=== PATIENT | male | born 1975 | race Caucasian/White ===

== ENCOUNTER 2018-05-17 13:41 | Emergency (ER) | payer MEDICAID ==
[2018-05-17] MEDS ORDERED: ALBUTEROL NEB 2.5 MG/3 ML INH STA (14:08)
--- NOTE | 2018-05-17 14:11 | ED Physician Documentation ---
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 He is not currently on antifungal treatment. For the last 3-4 days he has had a cough productive of pinkish sputum with mild shortness of breath and also runny nose and sore throat. His significant other had a similar illness. No recent travel.) Review of Systems Constitutional: reports: Fever (subjective) Nose: reports: Rhinorrhea / runny nose, Congestion Throat: reports: Sore throat Respiratory: reports: Dyspnea, Cough GI: denies: Abdominal Pain PD PAST MEDICAL HISTORY - Present Medications Home Medications: Ambulatory Orders Medication Instructions Recorded Confirmed Hydrocodone/Chlorphen P-Stirex 5 ml PO BID PRN #90 ml 05/17/18 [Hydrocodone-Chlorphen ER Susp] Levofloxacin [Levaquin] 750 mg PO DAILY #7 tablet 05/17/18 RX: Albuterol Sulf [Ventolin Hfa 1 - 2 puffs INH Q4HR PRN #1 inhaler 05/17/18 Inhaler] - Allergies Allergies/Adverse Reactions: Allergies Allergy/AdvReac Type Severity Reaction Status Date / Time No Known Drug Allergies Allergy Verified 05/17/18 13:47 PD ED PE NORMAL - Vitals Vital signs reviewed: Yes - General General: Alert and oriented X 3, No acute distress, Other (frequent cough) - HEENT HEENT: PERRL, EOMI, Pharynx benign - Neck Neck: Supple, no meningeal sign, No bony TTP - Cardiac Cardiac: RRR, No murmur - Respiratory Respiratory: No respiratory distress, Other (Diminished throughout, no focal findings) - Abdomen Abdomen: Non tender - Extremities Extremities: No edema, No calf tenderness / cord - Neuro Neuro: Alert and oriented X 3, Normal speech Results - Vitals Vitals: Vital Signs - 24 hr 05/17/18 05/17/18 05/17/18 13:45 13:47 14:23 Temperature 37.3 C Heart Rate 110 H 107 H Respiratory 15 16 Rate Blood Pressure 116/75 O2 Saturation 96 05/17/18 05/17/18 05/17/18 15:36 15:47 16:24 Temperature Heart Rate 100 106 H 100 Respiratory 16 16 Rate Blood Pressure 116/68 116/68 105/68 O2 Saturation 99 100 99 Oxygen O2 Source Room air - Labs Labs: Laboratory Tests 05/17/18 05/17/18 05/17/18 14:30 14:30 14:30 WBC 13.8 H RBC 4.56 L Hgb 14.4 Hct 40.8 L MCV 89.6 MCH 31.5 H MCHC 35.2 RDW 12.2 Plt Count 289 MPV 7.6 Neut # (Auto) 11.3 H Lymph # (Auto) 1.1 L [place] # (Auto) 1.3 H Eos # (Auto) 0.1 Baso # (Auto) 0.1 Absolute Nucleated RBC 0.01 Nucleated RBC % 0.0 Sodium 131 L Potassium 3.6 Chloride 94 L Carbon Dioxide 27 Anion Gap 10.0 BUN 14 Creatinine 1.0 Estimated GFR (MDRD) 82 L Glucose 102 H Lactic Acid 1.6 Calcium 8.8 - Rads (name of study) 2v chest Radiology: EMP read contemporaneously (RLL PNA) PD MEDICAL DECISION MAKING - ED course ED course: 42-year-old gentleman with history of lobectomy due to coccidiomycosis presents with productive cough and mild tachycardia. Found to have lobar pneumonia on x- ray. Labs are reassuring from a septic standpoint and he was feeling better after IV fluids here. He also received a dose of IV levofloxacin. Departure - Departure Disposition: 01 Home, Self Care Clinical Impression: Pneumonia Condition: Good Record reviewed to determine appropriate education?: Yes Instructions: Pneumonia Dc Prescriptions: RX: Albuterol Sulf [Ventolin Hfa Inhaler] 1 - 2 puffs INH Q4HR PRN #1 inhaler PRN Reason: Shortness Of Air/Wheezing Hydrocodone/Chlorphen P-Stirex [Hydrocodone-Chlorphen ER Susp] 5 ml PO BID PRN #90 ml PRN Reason: Cough Levofloxacin [Levaquin] 750 mg PO DAILY #7 tablet Comments: Call your doctor to arrange a follow-up appointment, make the next available appointment. In the interim, return anytime if worse or if new symptoms develop. Discharge Date/Time: 05/17/18 16:32
[2018-05-17] MEDS ORDERED: SODIUM CHLORIDE 0.9% 1,000 ML IV ONE (14:17)
[2018-05-17] MEDS ORDERED: levoFLOXacin 750 MG/150 ML 750 MG/150 ML BAG IV ONE (14:17)
[2018-05-17] MEDS ORDERED: ACETAMINOPHEN 325 MG TABLET PO STA (14:35)
[2018-05-17] MEDS ORDERED: IBUPROFEN 800 MG TABLET PO STA (14:35)
[2018-05-17 14:45] LABS: BASOPHILS # (AUTO) 0.1 10^3/uL (0.0-0.1); BASOPHILS % (AUTO) 0.5 %; EOSINOPHILS # (AUTO) 0.1 10^3/uL (0.0-0.7); EOSINOPHILS % (AUTO) 0.7 %; HGB - HEMOGLOBIN 14.4 g/dL (14.0-18.0); LYMPHOCYTES # (AUTO) 1.1 10^3/uL (1.5-3.5); LYMPHOCYTES % (AUTO) 7.7 %; MEAN CORPUSCULAR HEMOGLOBIN 31.5 pg (27.0-31.0); MEAN CORPUSCULAR HGB CONC 35.2 g/dL (32.0-36.0); MEAN CORPUSCULAR VOLUME 89.6 fL (80.0-94.0); MEAN PLATELET VOLUME 7.6 fL (7.4-11.4); MONOCYTES # (AUTO) 1.3 10^3/uL (0.0-1.0); MONOCYTES % (AUTO) 9.2 %; NEUTROPHILS # (AUTO) 11.3 10^3/uL (1.5-6.6); NEUTROPHILS % (AUTO) 81.9 %; PLT - PLATELET COUNT 289 10^3/uL (130-450); RED BLOOD COUNT 4.56 10^6/uL (4.70-6.10); RED CELL DISTRIBUTION WIDTH 12.2 % (12.0-15.0); WHITE BLOOD COUNT 13.8 x10^3/uL (4.8-10.8)
[2018-05-17 14:49] LABS: CALCIUM 8.8 mg/dL (8.5-10.3)
--- NOTE | 2018-05-17 14:59 | XRAY Report ---
Reason: cough Procedure Date: 05/17/2018 Accession Number: [id number] / [id number] Procedure: XR - Chest 2 View X-Ray CPT Code: 68025 FULL RESULT: EXAM: CHEST RADIOGRAPHY EXAM DATE: 05/17/2018 02:16 PM. CLINICAL HISTORY: Cough. COMPARISON: None. TECHNIQUE: 2 views. FINDINGS: Lungs/Pleura: Patchy right lower lobe consolidation. Lungs are otherwise clear. Surgical changes in the left mid and upper lung. No pleural effusion. No pneumothorax. Mild hyperinflation. Mediastinum: Heart and mediastinal contours are normal. Other: None. IMPRESSION: Right lower lobe pneumonia. Mild hyperinflation. Consider radiographic follow-up after appropriate treatment. RADIA
[2018-05-17 16:24] VITALS: BP 105/68
--- NOTE | 2018-05-17 17:39 | ED Physician Documentation ---
ED Addendum - Addendum Addendum: 05/17/18 17:39 The cough syrup prescribed was not covered by his insurance. Authorized to change to Cheratussin with the same directions and amount.
== END 2018-05-17 16:32 | disposition home or self-care (01) ==
LOC: ED 13:41
DX: J18.9 Pneumonia, unspecified organism (principal); Z90.2 Acquired absence of lung [part of]
CPT/HCPCS: 36415; 71046; 80048; 83605; 85025; 87040; 94640; 96365; 96366; 99283; 99284; A9270

== ENCOUNTER 2020-07-24 13:48 | Outpatient (CLI) | payer SELFPAY ==
--- NOTE | 2020-07-24 18:01 | XRAY Report ---
PROCEDURE: Finger(s) LT INDICATIONS: LEFT THUMB LAC TECHNIQUE: AP hand, 2 views of the first finger(s) acquired. COMPARISON: None FINDINGS: Bones: No fractures or dislocations. No suspicious bony lesions. Soft tissues: No suspicious soft tissue calcifications. An imaging material can be seen at the base of the thumb, which somewhat limits evaluation. Opaque debris can be seen at the level of the interphalangeal joint of the thumb. IMPRESSION: No acute bony abnormality is identified. Radiopaque debris can be seen at the level of the interphalangeal joint of the thumb. Foreign materia l is suspected. Differential diagnosis includes tiny bone fragments, yet this is considered to be les s likely. If it would be helpful for clinical management decision making, please consider a dedicated CT for fu rther evaluation. Reviewed by: Aron Larsen MD on 07/24/2020 4:59 PM [place] Approved by: Aron Larsen MD on 07/24/2020 4:59 PM [facility] Station ID: [id number]
== END 2020-07-24 23:59 | disposition home or self-care (01) ==
LOC: DI.N 13:48
PROVIDERS: ATTEND Physician Assistant Medical
DX: S61.012A Laceration without foreign body of left thumb without damage to nail, initial encounter (principal)

== ENCOUNTER 2020-08-07 14:41 | Outpatient (CLI) | payer SELFPAY ==
--- NOTE | 2020-08-07 16:58 | XRAY Report ---
PROCEDURE: Tib/Fib LT INDICATIONS: UNSPECIFIED FX OF SHAFT OF L TIBIA TECHNIQUE: 2 views of the tibia and fibula were acquired. COMPARISON: None FINDINGS: Bones: No fractures or dislocations. No suspicious bony lesions. Soft tissues: No suspicious soft tissue calcifications or masses. IMPRESSION: No evidence acute bony abnormality of the left tibia and fibula. Reviewed by: Timbo Rodriguez MD on 08/07/2020 3:57 PM [facility] Approved by: Timbo Rodriguez MD on 08/07/2020 3:57 PM [facility] Station ID: [id number]
== END 2020-08-07 23:59 | disposition home or self-care (01) ==
LOC: DI.N 14:41
PROVIDERS: ATTEND Physician Assistant Medical
DX: S82.202A Unspecified fracture of shaft of left tibia, initial encounter for closed fracture (principal)

== ENCOUNTER 2022-10-06 08:00 | Outpatient (CLI) | payer SELFPAY | END 2022-10-06 23:59 | disposition home or self-care (01) | LOC: LAB.N 08:00 | PROVIDERS: ATTEND Registered Nurse | DX: L03.90 Cellulitis, unspecified (principal) | CPT/HCPCS: 87070; 87205 ==

== ENCOUNTER 2023-09-18 16:28 | Emergency (ER) | payer SELFPAY ==
[2023-09-18 16:57] LABS: BASOPHILS # (AUTO) 0.1 10^3/uL (0.0-0.1); BASOPHILS % (AUTO) 0.5 %; EOSINOPHILS # (AUTO) 0.2 10^3/uL (0.0-0.7); EOSINOPHILS % (AUTO) 1.2 %; HGB - HEMOGLOBIN 15.7 g/dL (14.0-18.0); LYMPHOCYTES # (AUTO) 2.3 10^3/uL (1.5-3.5); MEAN CORPUSCULAR HEMOGLOBIN 31.7 pg (27.0-31.0); MEAN CORPUSCULAR HGB CONC 34.9 g/dL (32.0-36.0); MEAN CORPUSCULAR VOLUME 90.9 fL (80.0-94.0); MEAN PLATELET VOLUME 9.1 fL (7.4-11.4); MONOCYTES # (AUTO) 0.9 10^3/uL (0.0-1.0); MONOCYTES % (AUTO) 7.2 %; NEUTROPHILS # (AUTO) 8.8 10^3/uL (1.5-6.6); NEUTROPHILS % (AUTO) 71.9 %; PLT - PLATELET COUNT 277 10^3/uL (130-450); RED BLOOD COUNT 4.95 10^6/uL (4.70-6.10); RED CELL DISTRIBUTION WIDTH 11.9 % (12.0-15.0); WHITE BLOOD COUNT 12.3 x10^3/uL (4.8-10.8)
[2023-09-18 17:13] LABS: ALBUMIN/GLOBULIN RATIO 1.7 (1.0-2.2); BILIRUBIN,TOTAL 1.5 mg/dL (0.2-1.0); CALCIUM 10.4 mg/dL (8.5-10.3); POTASSIUM 4.2 mmol/L (3.5-4.5)
[2023-09-18 17:15] LABS: BILIRUBIN,URINE NEGATIVE (NEGATIVE); GLUCOSE, URINE (UA) NEGATIVE (NEGATIVE); KETONES,URINE (UA) NEGATIVE (NEGATIVE); LEUKOCYTE ESTERASE, URINE NEGATIVE (NEGATIVE); NITRITE,URINE NEGATIVE (NEGATIVE); OCCULT BLOOD,URINE NEGATIVE (NEGATIVE); PROTEIN,URINE NEGATIVE (NEGATIVE); UROBILINOGEN,URINE 0.2 (NORMAL) E.U./dL (NORMAL)
[2023-09-18 17:16] LABS: CLARITY,URINE CLOUDY (CLEAR)
--- NOTE | 2023-09-18 17:23 | ED Physician Documentation ---
PD HPI ABD PAIN - Stated complaint Stated Complaint: ABD PX - Chief complaint Chief Complaint: Abd Pain - History obtained from History obtained from: Patient - Additional information Additional information: 47-year-old gentleman with history of coccidiomycosis necessitating lung surgery via left thoracotomy several years ago while in [place]. He does have a known hernia related to that. He presents by private vehicle for the evaluation of epigastric pain that is severe starting at 8 AM this morning. He was driving to work while it started. He had coffee but no other breakfast. This is nothing is ever had before. The pain does not radiate. It has been constant and unrelenting. His bowel movements have been normal for him which his girlfriend tells me are often vacillating between diarrhea and constipation. There is no nausea associated with this. PD PAST MEDICAL HISTORY - Past Medical History Past Medical History: No - Past Surgical History Past Surgical History: No Cardiovascular: Lobectomy - Present Medications Home Medications: Ambulatory Orders Medication Instructions Recorded Confirmed HYDROcod/ACETAM 5/325 [[place] 5/325] 1 - 2 tab PO Q6H PRN #10 tablet 09/18/23 Omeprazole 40 mg PO DAILY #30 cap 09/18/23 - Allergies Allergies/Adverse Reactions: Allergies Allergy/AdvReac Type Severity Reaction Status Date / Time No Known Drug Allergies Allergy Verified 09/18/23 16:43 - Social History Does the pt smoke?: No Smoking Status: Never smoker Does the pt drink ETOH?: No Does the pt have substance abuse?: No - Immunizations Immunizations are current?: No Immunizations: TDAP >10years/unknown - POLST Patient has POLST: No PD ED PE NORMAL - Vitals Vital signs reviewed: Yes - General General: Alert and oriented X 3, No acute distress - HEENT HEENT: PERRL, EOMI - Neck Neck: Supple, no meningeal sign, No bony TTP - Cardiac Cardiac: RRR, No murmur - Respiratory Respiratory: No respiratory distress, Clear bilaterally - Abdomen Abdomen: Normal bowel sounds, Soft, Other (Modest epigastric and left upper quadrant tenderness apparently sparing the right upper quadrant.) - Derm Derm: No rash - Extremities Extremities: No edema, No calf tenderness / cord - Neuro Neuro: Alert and oriented X 3 Results - Vitals Vitals: Vital Signs - 24 hr 09/18/23 09/18/23 09/18/23 16:43 18:45 20:00 Temperature 36.5 C Heart Rate 88 64 68 Respiratory 16 17 16 Rate Blood Pressure 140/110 H 127/96 H 132/98 H O2 Saturation 100 97 98 Oxygen O2 Source Room air - EKG (time done) 1731 EKG releavant findings:: EKG personally interpreted by author of this note. Relevant findings are: Rate: Rate (enter#) (70) Rhythm: NSR [place]: Normal Intervals: Normal PA QRS: Normal Ischemia: Non specific changes. No: ST elevation c/w ischemia, ST depression Computer interpretation: Agree with computer - Labs Labs: Laboratory Tests 09/18/23 09/18/23 09/18/23 16:54 16:54 16:54 WBC 12.3 H RBC 4.95 Hgb 15.7 Hct 45.0 MCV 90.9 MCH 31.7 H MCHC 34.9 RDW 11.9 L Plt Count 277 MPV 9.1 Neut # (Auto) 8.8 H Lymph # (Auto) 2.3 [place] # (Auto) 0.9 Eos # (Auto) 0.2 Baso # (Auto) 0.1 Absolute Nucleated RBC 0.00 Nucleated RBC % 0.0 Sodium 141 Potassium 4.2 Chloride 103 Carbon Dioxide 30 Anion Gap 8.0 BUN 18 Creatinine 1.0 Estimated GFR (MDRD) 80 L Glucose 100 Calcium 10.4 H Total Bilirubin 1.5 H AST 28 ALT 25 Alkaline Phosphatase 72 Troponin I High Sens 3.1 Total Protein 8.0 Albumin 5.0 Globulin 3.0 Albumin/Globulin Ratio 1.7 Lipase 31 Urine Color Urine Clarity Urine pH Ur Specific [place] Urine Protein Urine Glucose (UA) Urine Ketones Urine Occult Blood Urine Nitrite Urine Bilirubin Urine Urobilinogen Ur Leukocyte Esterase Urine RBC Urine WBC Ur Squamous Epith Cells Amorphous Sediment Urine Bacteria Ur Microscopic Review Urine Culture Comments 09/18/23 17:11 WBC RBC Hgb Hct MCV MCH MCHC RDW Plt Count MPV Neut # (Auto) Lymph # (Auto) [place] # (Auto) Eos # (Auto) Baso # (Auto) Absolute Nucleated RBC Nucleated RBC % Sodium Potassium Chloride Carbon Dioxide Anion Gap BUN Creatinine Estimated GFR (MDRD) Glucose Calcium Total Bilirubin AST ALT Alkaline Phosphatase Troponin I High Sens Total Protein Albumin Globulin Albumin/Globulin Ratio Lipase Urine Color YELLOW Urine Clarity CLOUDY Urine pH 8.0 H Ur Specific [place] 1.020 Urine Protein NEGATIVE Urine Glucose (UA) NEGATIVE Urine Ketones NEGATIVE Urine Occult Blood NEGATIVE Urine Nitrite NEGATIVE Urine Bilirubin NEGATIVE Urine Urobilinogen 0.2 (NORMAL) Ur Leukocyte Esterase NEGATIVE Urine RBC 0-5 Urine WBC 0-3 Ur Squamous Epith Cells RARE Squamous Amorphous Sediment Marked Urine Bacteria Rare Ur Microscopic Review INDICATED Urine Culture Comments NOT INDICATED PD Medical Decision Making - ED course ED course: 47-year-old gentleman with acute upper abdominal pain. Minimally tender. ACS was considered but negative EKG and troponin. He got minimal relief from a GI cocktail but more relief after a milligram of IV Dilaudid which helped him for quite some time but eventually needed repeating. Workup demonstrated mild leukocytosis, otherwise normal H&H. Mild elevation of bilirubin. CT was basically normal. Suspect he has gastritis or ulcer. Will start PPI. Advised need for upper endoscopy especially in light of he notes that he had a 30-year-old brother who is a non-smoker who of gastric cancer. Departure - Departure Disposition: Home, Self Care Clinical Impression: Gastritis Condition: Good Record reviewed to determine appropriate education?: Yes Instructions: ED PUD Vs Gastritis Follow-Up: Surgical Care [Provider Group] Prescriptions: HYDROcod/ACETAM 5/325 [[place] 5/325] 1 - 2 tab PO Q6H PRN #10 tablet PRN Reason: Pain Omeprazole 40 mg PO DAILY #30 cap Comments: Your workup today was relatively unremarkable. He had a mild elevation of white count and bilirubin. Out of an abundance of caution we did heart testing which was negative. CAT scan showed small bilateral fat-containing inguinal hernias, but nothing in the upper abdomen. By process of elimination I suspect you have ulcer disease or gastritis. Given your family history, recommend you follow-up with a surgeon for consideration for upper endoscopy. I sent your prescriptions electronically to the [facility] community pharmacy at the corner of [address] in [place]. Return if worse. I am prescribing a short course of narcotic pain medication for you. These are potentially dangerous and addictive medications that should be used carefully. These medications may constipate you. Take an vour-sqz-zhtozba stool softener (docusate) twice daily with plenty of water while taking these medications. If you go 24 hours without a bowel movement, take [id number] miralax, per package instructions. Do not drink or drive while taking these medications. If you received narcotic or sedating medications while in the emergency department, do not drive for 24 hours. Store this medication in a safe, secure place and out of reach of children. It is a violation of federal law to give or sell this medication to another person or to use in a manner other than prescribed. The ED will not refill narcotic prescriptions, including prescriptions lost or stolen. To dispose of unwanted medications: 1. [facility] provides a [facility] box for medication in pill form only (no liquids) 8:00 am to 4:30 p.m. Saturday-Saturday in the lobby of the [facility], [address] [place] [address]. Empty pills into ziplock bag before disposal. Call [phone] for information. 2[employer] is a free service available to all [facility] residents. Go to [email or web address] Note that many narcotic pain relievers also contain Tylenol/acetaminophen. Please ensure that your total dose of acetaminophen from all sources does not exceed 3 g (3000 mg) per day. Forms: PCP List
[2023-09-18] MEDS ORDERED: iohexoL-300 100 ML VIAL ONE (17:26)
[2023-09-18 17:27] LABS: AMORPHOUS SEDIMENT,UR Marked /LPF; BACTERIA,URINE Rare /HPF (None Seen); RBC,URINE 0-5 /HPF (0-5); SQUAMOUS EPITHELIAL CELL,UR RARE Squamous (<= Few); WBC,URINE 0-3 /HPF (0-3)
[2023-09-18] MEDS: MAG HYDROX/AL HYDROX/SIMETH 30 ML UDC PO STA (17:48)
[2023-09-18] MEDS: LIDOCAINE VISCOUS 2% 15 ML UDC MM STA (17:48)
[2023-09-18] MEDS: HYDROmorphone 1 MG/ML CARPUJECT IVP STA ×2 (18:07→20:56)
[2023-09-18] MEDS: iohexoL-300 100 ML VIAL IVP ONE (18:46)
--- NOTE | 2023-09-18 20:24 | CT Report ---
PROCEDURE: Abdomen/Pelvis W INDICATIONS: IV only, upper abdominal pain CONTRAST: 100ml [id number] TECHNIQUE: After the administration of intravenous contrast, a CT scan of the abdomen and pelvis was performed. Images were recorded and evaluated at appropriate window settings. Reformats: coronal and sagittal. F or radiation dose reduction, the following was used: automated exposure control, adjustment of mA and /or kV according to patient size. COMPARISON: None. FINDINGS: Image quality: Diagnostic. Lower chest: Unremarkable. Liver: No solid mass. Gallbladder and biliary tree: No radiopaque stones or wall thickening. No biliary dilation. Spleen: No splenomegaly. Pancreas: No pancreatic ductal dilation. Adrenals: No adrenal nodule. Kidneys and ureters: No hydronephrosis. No renal cystic lesion which requires follow up. No solid mas s. Stomach, bowel and peritoneum: No bowel distension. No pathologic free fluid. Normal appendix. Lymph nodes: No central or retroperitoneal adenopathy. Vessels: No infrarenal aortic aneurysm. Mild atherosclerotic vascular calcifications. PELVIS Reproductive organs: Unremarkable. Bladder: No abnormal wall thickening, accounting for underdistention. Pelvic lymph nodes: No pelvic adenopathy by size criteria. Bones: No aggressive osseous abnormality. Other: Small bilateral fat-containing inguinal hernias. IMPRESSION: No acute findings within the abdomen or pelvis to explain patient's symptoms. Reviewed by: Ashish Atwood MD on 09/18/2023 8:22 PM PDT Approved by: Ashish Atwood MD on 09/18/2023 8:22 PM PDT Station ID: [id number]
[2023-09-18] MEDS: PANTOPRAZOLE 40 MG VIAL IVP STA (20:56)
[2023-09-18 21:15] VITALS: BP 131/86; O2SAT 96
== END 2023-09-18 21:15 | disposition home or self-care (01) ==
LOC: ED 16:28
DX: K29.70 Gastritis, unspecified, without bleeding (principal)
CPT/HCPCS: 36415; 74177; 80053; 81001; 83690; 84484; 85025; 93005; 96374; 96376; 99284; A9270; J1170; Q9967; 81003; 87086